=== PATIENT | female | born 1970 | race Caucasian/White ===

== ENCOUNTER 2022-02-13 09:43 | Emergency (ER) | payer MEDICARE ==
[~2022-02-13] VITALS: Ht 172.7 cm; Wt 81.7 kg
[~2022-02-13 09:43] MED LIST: HYDACE7.5L PO; IBUP400 PO; KETO10 PO; MECL25 PO; PANT20 PO; REBIF PO
== END 2022-02-13 10:59 | disposition home or self-care (01) ==
LOC: ER 09:43
DX: N20.0 Calculus of kidney (principal); Z79.899 Other long term (current) drug therapy
CPT/HCPCS: J1885